=== PATIENT | female | born 1975 | race American Indian/Alaskan Native ===

== ENCOUNTER 2018-02-08 19:53 | Inpatient (IN) | payer OTHER ==
[~2018-02-08 19:53] MED LIST: KEFLEX500 MG PO
== END 2018-02-15 20:02 | disposition home or self-care (01) | DRG 581 ==
LOC: SURH 02-14 06:22 → EDBD 02-14 06:22 → O/R 02-14 06:22 → SURH 02-14 07:00
PROVIDERS: Plastic Surgery; Surgery
PROC: 07B50ZX Excision of Right Axillary Lymphatic, Open Approach, Diagnostic (ICD-10-PCS; 2018-02-14)
PROC: 0HHT0NZ Insertion of Tissue Expander into Right Breast, Open Approach (ICD-10-PCS; principal; 2018-02-14 07:00)
PROC: 0HTT0ZZ Resection of Right Breast, Open Approach (ICD-10-PCS; 2018-02-14 07:00)
DX: C50.411 Malignant neoplasm of upper-outer quadrant of right female breast (principal); Z90.11 Acquired absence of right breast and nipple

== ENCOUNTER 2018-03-15 08:54 | Outpatient (CLI) | payer OTHER | END 2018-03-15 08:58 | disposition home or self-care (01) | LOC: SONOGRAMA 08:54 | DX: E04.1 Nontoxic single thyroid nodule (principal) ==